=== PATIENT | male | born 1975 | race African-American/Black ===

== ENCOUNTER 2023-05-28 11:39 | Emergency (ER) | payer OTHER, SELFPAY ==
[2023-05-28] MEDS ORDERED: Ketorolac Tromethamine 30 MG/ML VIAL ONE (11:57)
== END 2023-05-28 12:40 | disposition home or self-care (01) ==
LOC: CSHERS 11:39
DX: S43.402A Unspecified sprain of left shoulder joint, initial encounter (principal); S20.212A Contusion of left front wall of thorax, initial encounter; M54.50 Low back pain, unspecified; F17.210 Nicotine dependence, cigarettes, uncomplicated; Z65.3 Problems related to other legal circumstances
CPT/HCPCS: 71045; 96372; J1885